=== PATIENT | male | born 1990 | race Caucasian/White ===

== ENCOUNTER 2022-07-19 04:02 | Emergency (ER) | payer SELFPAY ==
[2022-07-19 04:17] VITALS: BP 127/80; PULSE 75; RESP 16; TEMP 36.8; O2SAT 98; BMI 22.8
--- NOTE | 2022-07-19 04:23 | ED.EYEPROB ---
HPI - Eye Problem General Time Seen by Provider: 04:23 Date Seen: 07/19/22 Chief complaint: Eye Problems Stated complaint: Swollen lft eye with discharge Time Seen by Provider: 07/19/22 04:23 Source: patient, RN notes reviewed and old records reviewed Mode of arrival: ambulatory Limitations: no limitations History of Present Illness HPI Narrative: Shemar is a 31-year-old gentleman who comes to the emergency room with a significant other for evaluation regarding increasing left eye pain. Shemar notes that his daughter has pinkeye and that on July 17 he started experiencing the same symptoms in his left eye. He was using her drops suture polymyxin B/trimethoprim or Polytrim. He thought he had been doing better until suddenly tonight he had increasing discomfort in his eyes associated with a lot of pus-like discharge. He does have blurriness in his left eye. He denies a headache. Has not taken anything for pain. Light does not seem to increase his discomfort he. He is preferring to keep his eye closed. Related Data Home Medications Medication Instructions Recorded Confirmed No Known Home Medications 07/19/22 07/19/22 Allergies Allergy/AdvReac Type Severity Reaction Status Date / Time albuterol Allergy Severe lungs Verified 07/19/22 04:30 close up prednisone Allergy Intermediate loses Verified 07/19/22 04:30 feeling in fingers and toes Review of Systems Const: Denies: fever Eyes: Reports: blurry vision, eye discomfort and eye discharge; Denies: blind spots or light sensitivity PFSH PFSH Surgical History [place] teeth extracted Social History Smoking Status: Unknown if ever smoked How often do you have a drink containing alcohol: never AUDIT-C Alcohol total score: 0 Non-prescribed substance use: denies use Exam Const: Vital Signs, click to edit/add: Vital Signs - 24 hr 07/19/22 04:17 Temperature 98.3 F Pulse Rate [Left P ulse Oximeter] 75 Respiratory Rate 16 Blood Pressure [Ri ght Upper Arm] 127/80 Pulse Oximetry 98 Oxygen Delivery Me thod Room Air Documenting provider has reviewed patient's vital signs: yes Common normals: oriented x3 General appearance: cooperative Eye: Common normals: PERRL and EOMs intact bilaterally Eyelid: eyelid abnormal (Mild edema and redness. Not well-demarcated) Conjunctiva: conjunctiva abnormal (Red) left Cornea: corneas normal and fluorescein used Pupil: PERRL Direct Ophthalmoscopy: no photophobia Other: Patient has equal pupils that are reactive to light. EOM is full. No significant light sensitivity. Yellow discharge present in inner canthus. No foreign bodies are noted. Under floor sign staining there is no evidence of a corneal abrasion. No foreign bodies are seen. Peripheral visual tirnh are intact. No evidence of clouding of the cornea. Neuro: Common normals: oriented x3 Course Reevaluation(s) Reevaluation #1: Patient noted to have relief of discomfort with tetracaine application. Patient was given ibuprofen 800 mg p.o.. Erythromycin ointment added to eye. Vital Signs Vital signs: Initial Vital Signs Temperature 98.3 F 07/19/22 04:17 Temperature Source Temporal Artery Scan 07/19/22 04:17 Pulse Rate 75 07/19/22 04:17 Pulse Rhythm 07/19/22 04:17 Respiratory Rate 16 07/19/22 04:17 Blood Pressure 127/80 07/19/22 04:17 Blood Pressure Mean 95 07/19/22 04:17 Blood Pressure Position Sitting 07/19/22 04:17 Pulse Oximetry 98 07/19/22 04:17 Oxygen Delivery Method 07/19/22 04:17 Vital Signs Temperature 98.3 F 07/19/22 04:17 Pulse Rate 75 07/19/22 04:17 Respiratory Rate 16 07/19/22 04:17 Blood Pressure 127/80 07/19/22 04:17 Pulse Oximetry 98 07/19/22 04:17 Oxygen Delivery Method 07/19/22 04:17 Temperature 98.3 F 07/19/22 04:17 Pulse Rate 75 07/19/22 04:17 Respiratory Rate 16 07/19/22 04:17 Blood Pressure 127/80 07/19/22 04:17 Pulse Oximetry 98 07/19/22 04:17 Oxygen Delivery Method 07/19/22 04:17 MDM - Eye Problem MDM Narrative Medical decision making narrative: 1. Conjunctivitis-patient had onset of pinkeye type symptoms on July 17. His daughter had similar symptoms in thus he decided to use her medication. While he does have conjunctivitis I believe that he also likely has an allergic reaction to the components in the eye medication. He does not have fever or chills. His EOM is full. His eye and eyelid have the appearance of a inflammatory reaction. We did accomplish a I culture tonight. Erythromycin placed on lower lid and patient was given ibuprofen 800 mg p.o. 2. Disposition-patient is instructed to continue to use erythromycin 3 to 4 times a day as directed. The phone number to [facility] [employer] is given to patient. If he is not improved in the morning would ask that he follow-up with the rehabilitation worker. If however he is actually worsening prior to the morning hours would have him return here to the emergency room for evaluation. Ibuprofen 800 mg every 8 hours as needed for discomfort. Return as needed. Note patient had resolution of his symptoms with the application of the Akira. Medical Records Attestation: I reviewed the patient's medical records. Discharge Plan Discharge Clinical Impression: Conjunctivitis, Allergic reaction Patient Disposition: Home, Self-Care Condition: Improved Additional Instructions: Erythromycin ointment every 6 hours while awake for 5 days. Ibuprofen 800 mg every 6-8 hours as needed for pain Seek medical attention for worsening symptoms./return to the emergency room Follow-up tomorrow with [facility] [employer] if you have ongoing symptoms and are not improved. The phone number is [phone]. Call in the morning if you are not better Prescriptions: No Action No Known Home Medications Stand Alone Forms: [employer] Info Instructions
[2022-07-19] MEDS: IBUPROFEN 400 MG TABLET 800 MG PO (04:45)
== END 2022-07-19 05:04 | disposition home or self-care (01) ==
LOC: ED 04:47
PROVIDERS: Emergency Provider Family Medicine
DX: H10.12 Acute atopic conjunctivitis, left eye (principal)
CPT/HCPCS: 87070; 87186; 99283; A9270